=== PATIENT | female | born 1990 | race African-American/Black ===

== ENCOUNTER 2016-12-16 01:06 | Emergency (ER) | payer OTHER ==
[2016-12-16 01:28] VITALS: BP 125/84; PULSE 74; TEMP 98.4; BMI 24.0
[2016-12-16 02:19] LABS: URINE APPEARANCE CLEAR; URINE BILIRUBIN NEGATIVE (NEGATIVE); URINE BLOOD NEGATIVE (NEGATIVE); URINE COLOR YELLOW; URINE GLUCOSE (UA) NEGATIVE (NEGATIVE); URINE KETONE NEGATIVE (NEGATIVE); URINE LEUK ESTERASE NEGATIVE (NEGATIVE); URINE NITRITE POSITIVE (NEGATIVE); URINE PROTEIN NEGATIVE (NEGATIVE); URINE UROBILINOGEN NEGATIVE E.U./dl (0.2-1.0)
[2016-12-16 02:26] LABS: BASOPHIL 0.9 % (0-2.0); EOSINOPHIL 4.1 % (0-4.5); MCH 26.6 pg (25.7-33.7); MCHC 32.3 g/dl (32.0-36.0); MEAN CELL VOLUME 82.4 fl (80-96); MEAN PLT VOLUME 7.7 fl (7.5-11.1); NEUTROPHILS 43.3 % (42.8-82.8); PLATELET COUNT 214 K/MM3 (134-434); RDW 13.5 % (11.6-15.6); WHITE BLOOD COUNT 7.9 K/mm3 (4.0-10.0)
[2016-12-16 02:26] LABS: URINE BACTERIA MANY /hpf (NONE SEEN); URINE HYALINE CAST 14 /lpf; URINE MUCUS FEW; URINE RBC <1 /hpf (0-3); URINE WBC 2 /hpf (3-5)
[2016-12-16 03:05] LABS: ALBUMIN 3.5 g/dl (3.4-5.0); ANION GAP 9 (8-16); BILIRUBIN,TOTAL 0.5 mg/dL (0.2-1.0); CALCIUM 8.5 mg/dL (8.5-10.1); CO2 26 mmol/L (21-32); CREATININE 0.4 mg/dL (0.55-1.02); GLUCOSE,RANDOM 84 mg/dL (74-106); SGOT/AST 13 U/L (15-37); SGPT/ALT 21 U/L (12-78); TOT PROT 6.7 g/dl (6.4-8.2)
[2016-12-16 03:20] LABS: ALK PHOS 41 U/L (45-117)
--- NOTE | 2016-12-16 03:27 | PDOC ---
History of Present Illness - General Chief Complaint: Weakness Stated Complaint: BODY PAIN (8 WEEKS PREG) Time Seen by Provider: 12/16/16 01:51 - History of Present Illness Initial Comments: 12/16/16 03:28 CHIEF COMPLAINT: weakness, fatigue HISTORY OF PRESENT ILLNESS: 26 yo 8 wk F presents to ED with weakness since this morning. She denies any vomiting, diarrhea, vaginal bleeding , cramping, or pain. No recent travel or sick contacts. PAST MEDICAL HISTORY: Denies past medical history FAMILY HISTORY: Denies SOCIAL HISTORY: Denies tobacco, alcohol, illicit drug use. SURGICAL HISTORY: Denies ALLERGIES: No known drug allergies REVIEW OF SYSTEMS General/Constitutional: Weakness today. Denies fever or chills. HEENT: Denies change in vision. Denies ear pain or discharge. Denies sore throat. Cardiovascular: Denies chest pain or shortness of breath. Respiratory: Denies cough, wheezing, or hemoptysis. Gastrointestinal: Denies nausea, vomiting, diarrhea or constipation. Denies rectal bleeding. Genitourinary: Denies dysuria, frequency, or change in urination. Musculoskeletal: Denies joint or muscle swelling or pain. Denies neck or back pain. Skin and breasts: Denies rash or easy bruising. PHYSICAL EXAM General Appearance: Well-appearing, appropriately dressed. No apparent distress. HEENT: EOMI, PERRLA. Neck: Supple. Trachea midline. No tenderness, rigidity, carotid bruit, stridor , lymphadenopathy, or thyromegaly. Respiratory/Chest: Lungs CTAB. No shortness of breath, chest tenderness, respiratory distress, accessory muscle use. No crackles, rales, rhonchi, stridor , wheezing, dullness Cardiovascular: RRR. S1, S2. Gastrointestinal/Abdominal: Normal bowel sounds. Abdomen soft, non-distended. No tenderness or rebound tenderness. No organomegaly, pulsatile mass, guarding , hernia, hepatomegaly, splenomegaly. Musculoskeletal/Extremities: Normal inspection. FROM of all extremities, normal capillary refill. Pelvis Stable. No CVA tenderness. No tenderness to extremities, pedal edema, swelling, erythema or deformity. Integumentary: Appropriate color, dry, warm. 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 Fully oriented, alert. Appropriate mood/affect. Motor strength 5/5. No appreciable EOM palsy, facial droop or sensory deficit. 12/20/16 06:30 Past History - Past Medical History Allergies/Adverse Reactions: Allergies Allergy/AdvReac Type Severity Reaction Status Date / Time No Known Allergies Allergy Verified 12/16/16 01:56 Home Medications: Ambulatory Orders Cephalexin [Keflex] 500 mg PO BID #20 capsule 12/16/16 Other medical history: hx baby 27 weeks 2015 - Psycho/Social/Smoking Cessation Hx Suicidal Ideation: No Smoking History: Never smoked *Physical Exam - Vital Signs Last Vital Signs Temp Pulse Resp BP Pulse Ox 98.4 F 74 18 125/84 100 12/16/16 01:25 12/16/16 01:25 12/16/16 01:25 12/16/16 01:25 12/16/16 01:47 ED Treatment Course - LABORATORY CBC & Chemistry Diagram: 12/16/16 02:13 12/16/16 02:13 - ADDITIONAL ORDERS Additional order review: Laboratory Results 12/16/16 12/16/16 02:13 01:47 Sodium 139 Potassium 3.8 Chloride 104 Carbon Dioxide 26 Anion Gap 9 BUN 9 Creatinine 0.4 L Creat Clearance w eGFR > 60 Random Glucose 84 Calcium 8.5 Total Bilirubin 0.5 AST 13 L ALT 21 Alkaline Phosphatase 41 L Total Protein 6.7 Albumin 3.5 Beta HCG, Quant 56358.7 Urine Color Yellow Urine Appearance Clear Urine pH 6.0 Urine Protein Negative Urine Glucose (UA) Negative Urine Ketones Negative Urine Blood Negative Urine Nitrite Positive Urine Bilirubin Negative Urine Urobilinogen Negative Ur Leukocyte Esterase Negative Urine RBC <1 Urine WBC 2 Ur Epithelial Cells Few Urine Bacteria Many Hyaline Casts 14 Urine Mucus Few 12/16/16 02:13 RBC 4.29 MCV 82.4 MCHC 32.3 RDW 13.5 MPV 7.7 Neutrophils % 43.3 Lymphocytes % 44.1 H Monocytes % 7.6 Eosinophils % 4.1 Basophils % 0.9 Medical Decision Making - Medical Decision Making 12/20/16 06:30 26 yo 8 wk F presents to ED with weakness since this morning. Exam unremarkable. -CBC, CMP, beta hcg. UA, Ucx -TVUS UA positive for nitrites, will treat for UTI. Labs otherwise unremarkable. Fatigue likely secondary to . *DC/Admit/Observation/Transfer Diagnosis at time of Disposition: related fatigue in first trimester - Discharge Dispostion Disposition: HOME Admit: No - Prescriptions Prescriptions: Cephalexin [Keflex] 500 mg PO BID #20 capsule - Referrals Referrals: Rios Ramirez MD [Staff Physician] - - Patient Instructions Printed Discharge Instructions: DI for Urinary Tract Infection (UTI), Common Discomforts and Bodily Changes During , Managing Symptoms of Additional Instructions: Please follow up with obstetrics within the next 48 hours. If you experience any vaginal bleeding, headache, chest pain, shortness of breath, palpitations, or any new or worsening symptoms, please return to the ER.
== END 2016-12-16 04:01 | disposition home or self-care (01) ==
LOC: JER 01:06
DX: O26.811 Pregnancy related exhaustion and fatigue, first trimester (principal); Z3A.08 8 weeks gestation of pregnancy
CPT/HCPCS: 36415; 80053; 81003; 81015; 84702; 85025; 86850; 86900; 86901; 87086; 99282-25